=== PATIENT | male | born 1975 | race Caucasian/White ===

== ENCOUNTER 2017-10-19 12:30 | Emergency (ER) | payer OTHER ==
[~2017-10-19] VITALS: Ht 180.3 cm; Wt 81.3 kg
[~2017-10-19 12:30] MED LIST: ATIVAN0.25 MG PO; CHANTIX1 MG PO; KLONOPIN0.25 M1 PO; NOHOMEMEDS; PROZAC40 MG PO
[2017-10-19 14:38] VITALS: BP 109/68
== END 2017-10-19 14:38 | disposition home or self-care (01) ==
LOC: EME 12:30
PROC: 3E0234Z Introduction of Serum, Toxoid and Vaccine into Muscle, Percutaneous Approach (ICD-10-PCS; principal; 2017-10-19)
DX: S61.213A Laceration without foreign body of left middle finger without damage to nail, initial encounter (principal); W26.8XXA Contact with other sharp object(s), not elsewhere classified, initial encounter; Z23 Encounter for immunization; F17.200 Nicotine dependence, unspecified, uncomplicated
CPT/HCPCS: 99281; 99284

== ENCOUNTER 2018-03-09 18:48 | Emergency (ER) | payer OTHER ==
[~2018-03-09] VITALS: Ht 182.9 cm; Wt 78.5 kg
[2018-03-09 19:22] VITALS: BP 128/77
== END 2018-03-09 23:31 | disposition home or self-care (01) ==
LOC: EME 18:48
PROC: 0HQGXZZ Repair Left Hand Skin, External Approach (ICD-10-PCS; principal; 2018-03-09)
DX: S61.012A Laceration without foreign body of left thumb without damage to nail, initial encounter (principal); W22.8XXA Striking against or struck by other objects, initial encounter
CPT/HCPCS: 73140; 99281; 99283